=== PATIENT | male | born 1940 | race Hispanic/Latino ===

== ENCOUNTER 2016-11-29 10:12 | Day surgery (SDC) | payer MEDICARE ==
[2016-11-29] MEDS ORDERED: NACL 0.9% 1000 ML 1,000 ML IV ONE (11:07)
[2016-11-29] MEDS ORDERED: VALIUM PO ONE (11:07)
[2016-11-29] MEDS ORDERED: VALIUM ONE (11:08)
[2016-11-29 11:43] LABS: BUN/Creatinine Ratio 15.78; Calcium 8.6 mg/dL (8.4-10.2); Chloride 104.1 mmol/L (98-107); Potassium 4.5 mmol/L (3.6-5.0)
[2016-11-29] MEDS ORDERED: NACL ONE (13:10)
[2016-11-29 14:11] VITALS: BP 174/116
--- NOTE | 2016-11-29 15:36 | Cat Scan Report ---
CT abdomen and pelvis with contrast: History: Abdominal aortic aneurysm. Transverse images obtained from the low chest to the ischium with coronal and sagittal 2-D reformatted images. 3-D image also included. Comparison is made to the noncontrasted prior study of September 25, 2016. The lung bases are clear. The abdominal organs are unremarkable. There is mild perinephric stranding bilaterally with somewhat thin cortical margins of both kidneys. Mild diverticulosis of the distal colon is noted. The patient has an extremely large prostate indenting the urinary bladder base. Bladder solorzano are not thickened. There are fat-containing bilateral small inguinal hernias. The suprarenal abdominal aorta is normal in diameter. The contour is irregular due to atheromatous mural plaque. 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 Single renal arteries are patent bilaterally. 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 The solorzano are heavily calcified. The opacified lumen is also markedly dilated but tapers toward the bifurcation. The adama-luminal thrombus progressively increases in size as the lumen tapers toward the bifurcation. The maximum diameter of the aneurysm is approximately 7.7 x 8.6 cm. Within limits of error this is probably unchanged from prior study. The diameter of the right proximal ILENE is 2 cm and the left is approximately 16 mm. There is diffuse mural atherosclerosis throughout both vessels and extending into the bifurcation and external iliacs. The external iliacs and common femoral arteries are patent with patent bifurcations. Impressions: 1. Apparently stable large infrarenal fusiform abdominal aortic aneurysm. 2. 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 Extensive atherosclerosis of aorta and branches. 3. Stenotic celiac artery. 4. Markedly enlarged prostate gland.
== END 2016-11-29 15:00 | disposition home or self-care (01) ==
LOC: OPU 10:12
DX: I08.0 Rheumatic disorders of both mitral and aortic valves (principal); I71.4 Abdominal aortic aneurysm, without rupture; I70.0 Atherosclerosis of aorta; I10 Essential (primary) hypertension
CPT/HCPCS: 36415; 74174; 80048; 93306; 96360; 96361; Q9967